=== PATIENT | male | born 1985 | race Caucasian/White ===

== ENCOUNTER 2017-08-09 17:04 | Emergency (ER) | payer MEDICAID ==
[2017-08-09 17:12] VITALS: RESP 16
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
[2017-08-09] MEDS ORDERED: IOPAMIDOL (ISOVUE-300) 100 ML BTL ONE (17:48)
--- NOTE | 2017-08-09 17:59 | CPEKG ---
Heart Rate: 107 RR Interval: 561 P-R Interval: 132 QRSD Interval: 96 QT Interval: 344 QTC Interval: 459 P Beaufort: 48 QRS Beaufort: 58 T Wave Beau[place]: 29 EKG Severity - OTHERWISE NORMAL ECG - EKG Impression: SINUS TACHYCARDIA Electronically Signed By: Kwame Ricks 09-Aug-2017 19:19:42
[2017-08-09 19:08] VITALS: BP 119/80; PULSE 82; TEMP 98.2; O2SAT 94
== END 2017-08-09 19:07 ==
DX: F15.10 Other stimulant abuse, uncomplicated (principal); Z86.14 Personal history of Methicillin resistant Staphylococcus aureus infection; Z87.891 Personal history of nicotine dependence
CPT/HCPCS: 82947-QW; Q9967